=== PATIENT | male | born 2000 ===

== ENCOUNTER 2018-07-07 02:45 | Emergency (ER) | payer OTHER ==
[2018-07-07 03:01] VITALS: BP 137/80
--- NOTE | 2018-07-07 04:13 | XRay Report ---
PROCEDURE: XR CHEST 1V AP TECHNIQUE: Chest radiograph single view. HISTORY: Chest Pain COMPARISONS: None . FINDINGS: Heart: Normal. Mediastinum/Vessels: Normal. Lungs/Pleural space: Normal. Bony thorax: No acute osseous abnormality. Life support devices: None. IMPRESSION: No acute cardiopulmonary abnormality. This document is electronically signed by Yves Waggoner MD., July 07 2018 04:11:36 AM ET
--- NOTE | 2018-07-07 05:45 | Emergency Department Report ---
ED General Adult HPI - General Chief complaint: Chest Pain Stated complaint: CP Time Seen by Provider: 07/07/18 05:39 Source: patient Mode of arrival: Ambulatory Limitations: No Limitations - History of Present Illness Initial comments: 18-year-old -Spanish male comes to the emergency room complaining of left chest pain radiates to his shoulder. Patient reports that it hurts to cough or laugh. Patient reports it hurts to lay down. Hurts to cough. Patient did not take anything for pain. Reports it started about 8 PM. Patient admits about 2-3 days ago he was moving furniture. Patient has no past medical history currently takes no medications on a daily basis. -: This evening (1999) Location: chest Severity scale (0 -10): 10 Quality: aching, sharp Consistency: intermittent Improves with: rest Worsens with: movement Associated Symptoms: denies other symptoms - Related Data Allergies Allergy/AdvReac Type Severity Reaction Status Date / Time No Known Allergies Allergy Verified 07/07/18 03:01 ED Review of Systems ROS: Stated complaint: CP Other details as noted in HPI Comment: All other systems reviewed and negative ED Past Medical Hx - Past Medical History Previous Medical History?: No - Surgical History Past Surgical History?: No - Social History Smoking Status: Current Every Day Smoker Substance Use Type: None ED Physical Exam - General Limitations: No Limitations General appearance: alert, in no apparent distress - Head Head exam: Present: atraumatic, normocephalic - Respiratory Respiratory exam: Present: chest wall tenderness - Cardiovascular Cardiovascular Exam: Present: regular rate, normal rhythm. Absent: systolic murmur, diastolic murmur, rubs, gallop - GI/Abdominal GI/Abdominal exam: Present: soft, normal bowel sounds - Back Exam Back exam: Present: normal inspection - Neurological Exam Neurological exam: Present: alert, oriented X3 - Psychiatric Psychiatric exam: Present: normal affect, normal mood - Skin Skin exam: Present: warm, dry, intact, normal color. Absent: rash ED Course Vital Signs 07/07/18 07/07/18 02:56 03:02 Temperature 97.4 F L Pulse Rate 50 L Respiratory 16 Rate Blood Pressure 137/80 O2 Sat by Pulse 100 Oximetry ED Medical Decision Making - EKG Data EKG shows normal: sinus rhythm Rate: normal - Radiology Data Radiology results: report reviewed Patient: MISSAEL SCOTT MR#: [id number] : 2000 Acct:[id number] Age/Sex: 18 / M ADM Date: 07/07/18 Loc: ED Attending Dr: Ordering Physician: ISAEL SILVA MD Date of Service: 07/07/18 Procedure(s): XR chest 1V ap Accession Number(s): [id number] cc: ISAEL SILVA MD Fluoro Time In Minutes: PROCEDURE: XR CHEST 1V AP TECHNIQUE: Chest radiograph single view. HISTORY: Chest Pain COMPARISONS: None . FINDINGS: Heart: Normal. Mediastinum/Vessels: Normal. Lungs/Pleural space: Normal. Bony thorax: No acute osseous abnormality. Life support devices: None. IMPRESSION: No acute cardiopulmonary abnormality. This document is electronically signed by Yves Knight MD., July 07 2018 04:11:36 AM ET Transcribed By: CO Dictated By: YVES KNIGHT MD Electronically Authenticated By: YVES KNIGHT MD Signed Date/Time: 07/07/18 0413 DD/ 1 TD/TT: 07/07/18322 - Medical Decision Making Patient has been evaluated by this provider and [facility]. Chest x-ray shows no cardiopulmonary abnormalities. EKG shows normal sinus rhythm. Patient has reproducible pain to the chest wall left side and shoulder. Patient be discharged with instructions to take [id number] Tylenol and/or Motrin. Critical care attestation.: If time is entered above; I have spent that time in minutes in the direct care of this critically ill patient, excluding procedure time. ED Disposition Clinical Impression: Tenderness of chest wall Disposition: DC-01 TO HOME OR SELFCARE Is pt being admited?: No Does the pt Need Aspirin: No Condition: Stable Instructions: Chest Pain (ED), Costochondritis (ED) Additional Instructions: You can take [id number] Tylenol and/or Motrin or Aleve for chest muscle tenderness and pain. Referrals: GILBERT SWEET MD [Primary Care Provider] - 3-5 Days
== END 2018-07-07 05:53 | disposition home or self-care (01) ==
LOC: ED 02:45
DX: R07.89 Other chest pain (principal); F17.200 Nicotine dependence, unspecified, uncomplicated
CPT/HCPCS: 71045; 93005; 93010